=== PATIENT | male | born 1980 | race Caucasian/White ===

== ENCOUNTER 2018-06-18 10:41 | Emergency (ER) | payer OTHER ==
[~2018-06-18] VITALS: Ht 190.5 cm; Wt 95.5 kg
[2018-06-18] MEDS ORDERED: ONDANSETRON ODT 4 MG PO ONE (11:30)
[2018-06-18] MEDS ORDERED: DIPH,PERTUSS(ACELL),TET VAC/PF 0.5 ML IM-VACC ONE ×2 (11:30→11:37)
[2018-06-18] MEDS ORDERED: PLEASE ENTER ALLERGIES MC SCH (11:30)
[2018-06-18] MEDS ORDERED: L.E.T SOLUTION TP ONE ×2 (11:30→11:38)
[2018-06-18] MEDS ORDERED: LIDOCAINE 2%, 20ML SQ ONE (11:30)
[2018-06-18] MEDS ORDERED: ONDANSETRON ODT 4 MG ONE (11:37)
[2018-06-18] MEDS ORDERED: KETOROLAC 30 MG/1 ML ONE (12:37)
[2018-06-18 12:47] VITALS: BP 140/86
[2018-06-18] MEDS ORDERED: KETOROLAC 30 MG/1 ML IM ONE (13:00)
== END 2018-06-18 12:49 | disposition home or self-care (01) ==
LOC: ED 12:43
DX: S06.0X9A Concussion with loss of consciousness of unspecified duration, initial encounter (principal); S01.312A Laceration without foreign body of left ear, initial encounter; W22.8XXA Striking against or struck by other objects, initial encounter; Y93.89 Activity, other specified; Y92.69 Other specified industrial and construction area as the place of occurrence of the external cause; Y99.0 Civilian activity done for income or pay
CPT/HCPCS: 12002; 70450; 90471; 90715; 96372; 99284; J1885; Q0162

== ENCOUNTER 2018-06-28 11:25 | Emergency (ER) | payer OTHER ==
[~2018-06-28] VITALS: Ht 190.5 cm; Wt 95.0 kg
[2018-06-28 11:45] VITALS: BP 134/70
== END 2018-06-28 12:24 | disposition home or self-care (01) ==
LOC: ED 12:00
DX: S01.311D Laceration without foreign body of right ear, subsequent encounter (principal)
CPT/HCPCS: 99282